=== PATIENT | male | born 1955 | race Caucasian/White ===

== ENCOUNTER 2021-09-30 11:30 | Emergency (ER) | payer MEDICARE, OTHER ==
[2021-09-30 12:11] LABS: HEMOGLOBIN 10.2 gm/dl (14.0-17.5); RED BLOOD COUNT 3.68 M/UL (4.20-5.50); WHITE BLOOD COUNT 7.1 K/UL (4.5-11.0)
[2021-09-30] MEDS ORDERED: ZOFRAN4 MG PO (17:01)
== END 2021-09-30 17:20 | disposition home or self-care (01) ==
LOC: ER1 11:30
PROVIDERS: Physician Assistant
DX: N13.2 Hydronephrosis with renal and ureteral calculous obstruction (principal); N17.9 Acute kidney failure, unspecified; I25.10 Atherosclerotic heart disease of native coronary artery without angina pectoris; I11.9 Hypertensive heart disease without heart failure; Z85.46 Personal history of malignant neoplasm of prostate; Z85.118 Personal history of other malignant neoplasm of bronchus and lung; Z95.5 Presence of coronary angioplasty implant and graft
CPT/HCPCS: 80053; 81001; 83690; 85025; 96374; 96375; 99284; J2270; J2405